=== PATIENT | female | born 1995 | race Two or more races ===

== ENCOUNTER 2020-11-03 07:39 | Emergency (ER) | payer SELFPAY ==
[~2020-11-03 07:39] MED LIST: ACYCLOVIR400 MG PO; BENADRYL25 MG PO; IBUPROFEN600 MG PO; MEDROL4 MG PO; PREDNISONE 10 M10 MG PO; VALACYCLOVIR1000 MG PO; ZOVIRAX 5% CREAM5 GM TOP
[2020-11-03] MEDS ORDERED: PREDNISONE50 MG PO (09:43)
[2020-11-03] MEDS ORDERED: BENADRYL ALLERG25 MG PO (09:44)
== END 2020-11-03 09:58 | disposition home or self-care (01) ==
LOC: ER1 07:39
DX: T78.1XXA Other adverse food reactions, not elsewhere classified, initial encounter (principal); K13.0 Diseases of lips
CPT/HCPCS: 96374; 96375; 99283; C9113; J2930

== ENCOUNTER 2020-11-04 21:03 | Emergency (ER) | payer SELFPAY ==
[~2020-11-04 21:03] MED LIST changes: +BENADRYL ALLERG25 MG PO; +PREDNISONE50 MG PO
== END 2020-11-04 23:23 | disposition home or self-care (01) ==
LOC: ER1 21:03
DX: R22.0 Localized swelling, mass and lump, head (principal)
CPT/HCPCS: 96372; 96374; 99283; J2930

== ENCOUNTER → 2020-12-23 | Outpatient (CLI) | payer BC | LOC: US 08:58 | DX: R10.9 Unspecified abdominal pain (principal); K76.0 Fatty (change of) liver, not elsewhere classified | CPT/HCPCS: 76700 ==

== ENCOUNTER 2021-03-17 06:25 | Emergency (ER) | payer BC ==
[2021-03-17 10:26] LABS: HEMOGLOBIN 13.5 gm/dl (12.3-15.3); RED BLOOD COUNT 4.66 M/UL (4.00-5.10); WHITE BLOOD COUNT 6.5 K/UL (4.5-11.0)
[2021-03-17 10:47] LABS: BUN/CREATININE RATIO 11 (0-10)
[2021-03-17] MEDS ORDERED: CEPHALEXIN500 M1 PO (15:16)
== END 2021-03-17 15:35 | disposition home or self-care (01) ==
LOC: ER1 06:25
PROVIDERS: Physician Assistant
DX: O23.41 Unspecified infection of urinary tract in pregnancy, first trimester (principal); Z3A.01 Less than 8 weeks gestation of pregnancy
CPT/HCPCS: 76830; 80053; 81001; 84702; 85025; 86900; 86901; 87086; 99284

== ENCOUNTER 2021-04-10 14:57 | Emergency (ER) | payer BC ==
[~2021-04-10 14:57] MED LIST changes: +CEPHALEXIN500 M1 PO
[2021-04-10 15:31] LABS: HEMOGLOBIN 13.3 gm/dl (12.3-15.3); RED BLOOD COUNT 4.54 M/UL (4.00-5.10); WHITE BLOOD COUNT 7.5 K/UL (4.5-11.0)
[2021-04-10 15:48] LABS: BUN/CREATININE RATIO 13 (0-10)
== END 2021-04-10 16:43 | disposition home or self-care (01) ==
LOC: ER1 14:57
PROVIDERS: Physician Assistant
DX: O20.9 Hemorrhage in early pregnancy, unspecified (principal); O99.891 Other specified diseases and conditions complicating pregnancy; R31.9 Hematuria, unspecified
CPT/HCPCS: 80048; 81001; 84702; 85025; 87086; 99284

== ENCOUNTER 2021-04-20 06:08 | Emergency (ER) | payer BC ==
[2021-04-20 08:11] LABS: HEMOGLOBIN 12.4 gm/dl (12.3-15.3); RED BLOOD COUNT 4.41 M/UL (4.00-5.10); WHITE BLOOD COUNT 6.5 K/UL (4.5-11.0)
[2021-04-20 08:20] LABS: BUN/CREATININE RATIO 7 (0-10)
== END 2021-04-20 10:39 | disposition home or self-care (01) ==
LOC: ER1 06:08
PROVIDERS: Nurse Practitioner
DX: O26.851 Spotting complicating pregnancy, first trimester (principal); O46.91 Antepartum hemorrhage, unspecified, first trimester; Z3A.09 9 weeks gestation of pregnancy
CPT/HCPCS: 76801; 80053; 81001; 84702; 85025; 85610; 99284

== ENCOUNTER 2021-10-18 19:21 | Outpatient (CLI) | payer OTHER | END 2021-10-19 00:46 | disposition home or self-care (01) | LOC: GENOP 19:21 | DX: O99.891 Other specified diseases and conditions complicating pregnancy (principal); R10.2 Pelvic and perineal pain; R42 Dizziness and giddiness; O21.9 Vomiting of pregnancy, unspecified; Z3A.35 35 weeks gestation of pregnancy | CPT/HCPCS: 81001; 96360; 96361 ==

== ENCOUNTER 2021-10-23 18:10 | Outpatient (CLI) | payer OTHER | END 2021-10-23 20:11 | disposition home or self-care (01) | LOC: GENOP 18:10 | DX: O36.8130 Decreased fetal movements, third trimester, not applicable or unspecified (principal); O99.891 Other specified diseases and conditions complicating pregnancy; M54.50 Low back pain, unspecified; N89.8 Other specified noninflammatory disorders of vagina; R10.2 Pelvic and perineal pain; Z3A.36 36 weeks gestation of pregnancy | CPT/HCPCS: 81001; 83518; G0463 ==

== ENCOUNTER 2021-10-31 22:25 | Outpatient (CLI) | payer OTHER ==
[2021-11-02] MEDS ORDERED: FAMOTIDINE40 MG PO (00:45)
[2021-11-02] MEDS ORDERED: M-NATAL PLUS T1 EACH PO (00:45)
[2021-11-02] MEDS ORDERED: COLACE 100MG C100 MG PO (19:53)
[2021-11-02] MEDS ORDERED: FERROUS SULFAT325 MG PO (19:53)
[2021-11-02] MEDS ORDERED: IBUPROFEN600 MG PO (19:53)
== END 2021-11-01 01:00 | disposition home or self-care (01) ==
LOC: GENOP 22:25
DX: O47.1 False labor at or after 37 completed weeks of gestation (principal); O21.2 Late vomiting of pregnancy; Z3A.37 37 weeks gestation of pregnancy
CPT/HCPCS: 81001

== ENCOUNTER 2021-11-01 23:28 | Inpatient (IN) | payer OTHER ==
[~2021-11-01] VITALS: Ht 149.9 cm; Wt 84.4 kg
[2021-11-02] MEDS ORDERED: FAMOTIDINE40 MG PO (00:45)
[2021-11-02] MEDS ORDERED: M-NATAL PLUS T1 EACH PO (00:45)
[2021-11-02 01:14] LABS: HEMOGLOBIN 11.6 gm/dl (12.3-15.3); RED BLOOD COUNT 4.1 M/UL (4.00-5.10); WHITE BLOOD COUNT 6.6 K/UL (4.5-11.0)
[2021-11-02] MEDS ORDERED: FERROUS SULFAT325 MG PO (19:53)
[2021-11-02] MEDS ORDERED: COLACE 100MG C100 MG PO (19:53)
[2021-11-02] MEDS ORDERED: IBUPROFEN600 MG PO (19:53)
[2021-11-03 01:59] LABS: HEMOGLOBIN 11.2 gm/dl (12.3-15.3)
== END 2021-11-04 15:11 | disposition home or self-care (01) | DRG 807 ==
LOC: GENOP 23:28 → OB 11-02 00:43
PROVIDERS: Obstetrics & Gynecology; ADMIT Obstetrics & Gynecology
PROC: 10E0XZZ Delivery of Products of Conception, External Approach (ICD-10-PCS; principal; 2021-11-02)
PROC: 0HQ9XZZ Repair Perineum Skin, External Approach (ICD-10-PCS; 2021-11-02)
PROC: 3E0234Z Introduction of Serum, Toxoid and Vaccine into Muscle, Percutaneous Approach (ICD-10-PCS; 2021-11-02)
DX: O99.824 Streptococcus B carrier state complicating childbirth (principal); Z37.0 Single live birth; O99.52 Diseases of the respiratory system complicating childbirth; Z20.822 Contact with and (suspected) exposure to COVID-19; J45.909 Unspecified asthma, uncomplicated; M54.9 Dorsalgia, unspecified; R32 Unspecified urinary incontinence; O99.892 Other specified diseases and conditions complicating childbirth; Z3A.37 37 weeks gestation of pregnancy; O70.0 First degree perineal laceration during delivery; Z23 Encounter for immunization; Z82.49 Family history of ischemic heart disease and other diseases of the circulatory system; Z82.5 Family history of asthma and other chronic lower respiratory diseases; Z83.3 Family history of diabetes mellitus; Z80.3 Family history of malignant neoplasm of breast
CPT/HCPCS: 81001; 83518; 85014; 85018; 85025; 90471; 90707; J2540; J2590; J7070; J7120; U0002